=== PATIENT | male | born 1990 | race Caucasian/White ===

== ENCOUNTER 2020-08-25 06:18 | Outpatient (CLI) | payer BC ==
[2020-08-25 14:47] LABS: #Eosinphils 0.2 10x3/uL (0.0-0.5); #Monocytes 0.7 10x3/uL (0.0-1.1); #Neutrophils 4.6 10x3/uL (1.5-8.4); %Basophils 0.5 % (0.0-2.0); %Eosinophils 2.3 % (0.0-6.0); %Lymphocytes 35.6 % (18.0-47.0); %Neutrophils 53.1 % (40.0-75.0); Hemoglobin 13.7 g/dL (14.0-18.0); Mean Corpuscular HGB CONC 32.6 G/DL (32.0-36.0); Mean Corpuscular Volume 82.8 fl (80.0-100.0); Mean Platelet Volume 9.8 fl (7.4-10.4); Platelet Count 339 10x3/uL (130-400); RBC Distribution Width 13.7 % (11.5-14.5); Red Blood Cell (RBC) Count 5.07 10x6/uL (4.40-5.80); White Blood Cell (WBC) Count 8.7 10x3/uL (4.5-11.0)
[2020-08-26 02:56] LABS: SARS-CoV-2 MS2 Positive; SARS-CoV-2 N Gene Negative; SARS-CoV-2 S Gene Negative; SARS-CoV-2 by NAA Not Detected (NotDetected); SARS-CoV-2 orf1ab Negative
== END 2020-08-25 06:19 | disposition home or self-care (01) ==
LOC: LABBT 06:18
PROVIDERS: ATTEND Orthopaedic Surgery
DX: Z01.812 Encounter for preprocedural laboratory examination (principal); Z20.828 Contact with and (suspected) exposure to other viral communicable diseases; S83.511A Sprain of anterior cruciate ligament of right knee, initial encounter
CPT/HCPCS: 85025; 87635; U0003

== ENCOUNTER 2020-08-28 07:30 | Observation (INO) | payer BC ==
[2020-08-28] MEDS ORDERED: Fentanyl 100 MCG/2 ML VIAL ONE ×4 (08:29→13:49)
[2020-08-28] MEDS ORDERED: Midazolam HCl 2 mg/2 ml Vial ONE (08:29)
[2020-08-28] MEDS ORDERED: PROPOFOL 20 ML ONE ×2 (08:30→11:20)
[2020-08-28] MEDS ORDERED: Dexamethasone 20 MG/5 ML VIAL ONE ×2 (08:30→09:59)
[2020-08-28] MEDS ORDERED: Ondansetron PF 4 MG/2 ML Vial ONE ×2 (08:30→09:59)
[2020-08-28] MEDS ORDERED: Fentanyl 100 MCG/2 ML VIAL IV PRN (08:51)
[2020-08-28] MEDS ORDERED: Ondansetron PF 4 MG/2 ML Vial IVP PRN (09:00)
[2020-08-28] MEDS ORDERED: HYDROcodone/Acetaminophen 10/325 mg Tablet PO PRN ×2 (09:00)
[2020-08-28] MEDS ORDERED: Zolpidem Tartrate 5 MG TAB PO PRN (09:00)
[2020-08-28] MEDS ORDERED: Promethazine HCl 25 MG/ML VIAL IM PRN ×2 (09:00→13:26)
[2020-08-28] MEDS ORDERED: traMADol HCl 50 MG TAB PO PRN ×2 (09:00)
[2020-08-28] MEDS ORDERED: Ropivacaine 0.2% 550 ML 550 ML NERVE BLCK SCH (09:00)
[2020-08-28] MEDS ORDERED: PROPOFOL 200 MG/20 ML VIAL ONE (09:59)
[2020-08-28] MEDS ORDERED: PHENYLEPHRINE-NS 100 MCG/ML 10 ML SYRINGE ONE ×2 (09:59→11:55)
[2020-08-28] MEDS ORDERED: Bupivacaine HCl 0.5%/Epinephrine 1:200,000/PF 30 ml Vial ONE (09:59)
[2020-08-28] MEDS ORDERED: Ketorolac Tromethamine 30 MG/ML VIAL IVP SCH (12:00)
[2020-08-28] MEDS ORDERED: Morphine 2 MG/ML VIAL SLOW IVP PRN (12:50)
[2020-08-28] MEDS ORDERED: diphenhydrAMINE 50 MG CAP PO PRN (12:50)
[2020-08-28] MEDS ORDERED: Bisacodyl 10 MG SUPP PR PRN (12:50)
[2020-08-28] MEDS ORDERED: HYDROcodone/Acetaminophen 7.5/325 mg Tablet PO PRN ×2 (12:50)
[2020-08-28] MEDS ORDERED: Acetaminophen 500 MG TAB PO PRN (12:50)
[2020-08-28] MEDS ORDERED: Methocarbamol 500 MG TAB PO PRN (12:50)
[2020-08-28] MEDS ORDERED: Milk Of Magnesia 30 ML UDCUP PO PRN (12:50)
[2020-08-28] MEDS ORDERED: Promethazine HCl 25 MG/ML VIAL SLOW IVP PRN (13:26)
[2020-08-28] MEDS ORDERED: Ondansetron HCl/PF 4 MG/2 ML Vial IVP PRN (13:26)
[2020-08-28] MEDS ORDERED: Ketorolac Tromethamine 30 MG/ML VIAL ONE (13:49)
[2020-08-28] MEDS ORDERED: CEFAZOLIN 2 GM in Premix Bag 1 BAG IVPB SCH (16:00)
[2020-08-28] MEDS: CEFAZOLIN 2 GM in Premix Bag 1 BAG IVPB SCH (18:29)
[2020-08-28] MEDS: Dextrose 5 %-0.45 % NaCl 1,000 ML IV SCH ×2 (18:49→23:20)
[2020-08-28] MEDS: Ketorolac Tromethamine 30 MG/ML VIAL IVP SCH (21:26)
[2020-08-28] MEDS: Famotidine 20 MG TAB PO SCH (21:26)
[2020-08-28 22:25] VITALS: BMI 38.0
[2020-08-29] MEDS: CEFAZOLIN 2 GM in Premix Bag 1 BAG IVPB SCH (02:27)
[2020-08-29] MEDS: Ketorolac Tromethamine 30 MG/ML VIAL IVP SCH ×2 (02:28→08:14)
[2020-08-29] MEDS: Famotidine 20 MG TAB PO SCH (08:14)
[2020-08-29] MEDS ORDERED: FLU VACC QS2020-21(6MOS UP)/PF 60 MCG/0.5 ML SYRINGE IM ONE (09:00)
[2020-08-29 11:41] VITALS: BP 121/79; TEMP 98.2
--- NOTE | 2020-08-30 12:50 | OP ---
DATE OF PROCEDURE: 08/28/2020 PREOPERATIVE DIAGNOSIS: Right knee anterior cruciate ligament tear. POSTOPERATIVE DIAGNOSIS: Right knee anterior cruciate ligament tear. PROCEDURES PERFORMED: 1. Right knee exam under anesthesia. 2. Right knee arthroscopy with arthroscopically-assisted anterior cruciate ligament reconstruction using autologous patellar tendon graft. DELIVERER MERCHANDISE: Vitaly Mohr PA-C. The logging assistant surgeon was present throughout the procedure to include harvesting of the graft, drilling and placement of the new graft and closure of all knee wounds. ESTIMATED BLOOD LOSS: Minimal. COMPLICATIONS: None. ANESTHESIA: The patient did have a general anesthetic as well as preoperative block. DISPOSITION: He did go to recovery room in stable condition. IMPLANTS: A 7 x 25 metal interference screw in the femur and we used a bicortical screw with a smooth washer as a post on the tibia. INDICATIONS: A 29-year-old male, who injured his right knee and was found to have an ACL tear on MRI scan. The patient lives in [place] and traveled to [facility] to have this performed. DESCRIPTION OF PROCEDURE: After all appropriate consent forms were explained and signed, Timothy was taken to the operative room and at this time was given general anesthetic. Once the level of anesthesia was appropriate, an exam under anesthetic confirmed a positive Abhay's exam and found him to have a negative posterior drawer and stable to varus and valgus stress. At this time, a tourniquet was placed on the right thigh and leg was placed in arthroscopic leg reed. The limb was then prepped and draped in standard surgical fashion. The limb was exsanguinated and the tourniquet was taken up to 300 mmHg. Midline incision was made with 10 blade down through skin. Bovie was used to coagulate any brisk venous bleeding. New blade was used to take paratenon off the underlying patellar tendon. At this time, a central third patellar tendon graft was harvested using a double 10 blade, saw and osteotome. It was taken to back table and made so that each bone plug was size 10. At this time, graft site was loosely closed using multiple Vicryl sutures. Inferolateral portal was established. Scope was placed into the knee joint. Needle localization technique was then used to make a medial working portal. Diagnostic arthroscopy commenced. The patellofemoral joint was found to be in excellent condition. The entrance into the notch confirmed an ACL tear and the PCL being intact. The medial and lateral compartments were probed and found to be intact. Gutters were cleaned. At this time, notchplasty was performed and the remnant of the ACL was removed. We then flexed the knee up into an accessory medial portal and [id number] guide was placed and a pin was placed up and out the anterolateral thigh. Reamer was then used to ream our femoral tunnel to a depth of 30. All loose bony cartilaginous debris was removed from the knee joint. At this time, we then placed our tibial guide into the knee at 60 degrees secondary to the increased length of tendon. The pin was placed up into the knee joint. Again, 10- mm reamer was used to ream our tibial tunnel. All loose bony cartilaginous debris was removed from the knee joint one more time and a red rasp and daphne were used to smooth off any rough edges. At this time, we went dry. We then placed our pin up and out the anterolateral thigh one more time using this to pull our passing suture into the knee joint. This was pulled down the tibial tunnel and used to pull our graft up into place. A 7 x 25 metal interference screw was then used to fixate the femoral plug. We then drilled, tapped and placed a bicortical screw with a smooth washer, tying our tibial strings around this in full extension and the posterior drawer being applied. At this time under direct visualization, the knee was taken through full range of motion, making sure there was no impingement of the graft on the notch or the PCL. Once this was done, the scope was removed, knee was drained. We then bone grafted our patellar and tibial defect sites. We then ran a Vicryl to close our paratenon, 2-0 Vicryl and surgical zeny on skin. Bulky sterile dressing was applied. Tourniquet was let down. Toes pinked up nicely. The patient was then awakened. He was taken to the recovery room in stable condition. All counts were correct at the end of the case and he did receive preoperative IV antibiotics. Job ID: [id number] [facility]
== END 2020-08-29 12:00 | disposition home or self-care (01) ==
LOC: SDC 07:30 → SURG A 17:57
PROVIDERS: ADMIT Orthopaedic Surgery; ATTEND Orthopaedic Surgery
PROC: 3E0T3BZ Introduction of Anesthetic Agent into Peripheral Nerves and Plexi, Percutaneous Approach (ICD-10-PCS; principal; 2020-08-28)
PROC: 0MRN47Z Replacement of Right Knee Bursa and Ligament with Autologous Tissue Substitute, Percutaneous Endoscopic Approach (ICD-10-PCS; 2020-08-28)
DX: S83.511A Sprain of anterior cruciate ligament of right knee, initial encounter (principal); G89.18 Other acute postprocedural pain; G47.30 Sleep apnea, unspecified; E66.01 Morbid (severe) obesity due to excess calories; Z68.38 Body mass index [BMI] 38.0-38.9, adult; X50.1XXA Overexertion from prolonged static or awkward postures, initial encounter; Y93.6A Activity, physical games generally associated with school recess, summer camp and children
CPT/HCPCS: 96374; 96375; 96376; A4306; C1713; G0378; J0690; J1100; J1885; J2250; J2405; J2704; J2795; J3010